=== PATIENT | female | born 1955 | race Two or more races ===

== ENCOUNTER 2016-08-05 17:09 | Emergency (ER) | payer SELFPAY ==
[2016-08-05 17:23] VITALS: BP 175/89
[2016-08-05] MEDS ORDERED: HYDR-971 PO (17:30)
[2016-08-05] MEDS ORDERED: AMOX500C PO (17:30)
--- NOTE | 2016-08-05 17:30 | PHYS DOC ---
Adult General Chief Complaint Chief Complaint: DENTAL PROBLEM [facility] HPI Patient is a 60 year old female presents emergency Department with complaint of atraumatic right lower dental pain is been ongoing for several weeks. Patient does have a dentist that she sees. She's been having serial extractions of her teeth. Last extractions approximately 30 days ago. Patient states that she has not been on antibiotics within the past 90 days. She denies any history of fevers or chills. Patient denies any history of immunodeficiency problems. She states that she will get back in to see her dentist within the next 10-14 days. She is just requesting evaluation of possible need for antibiotics as well as a prescription for pain medication to bridge the gap until she sees her dentist again. This information was translated through contracted translation service. Review of Systems Review of Systems Constitutional: Denies fever or chills [] Eyes: Denies change in visual acuity, redness, or eye pain [] HENT: Denies nasal congestion or sore throat [] Respiratory: Denies cough or shortness of breath [] Cardiovascular: No additional information not addressed in HPI [] GI: Denies abdominal pain, nausea, vomiting, bloody stools or diarrhea [] : Denies dysuria or hematuria [] Musculoskeletal: Denies back pain or joint pain [] Integument: Denies rash or skin lesions [] Neurologic: Denies headache, focal weakness or sensory changes [] Endocrine: Denies polyuria or polydipsia [] Allergies Allergies Allergies Coded Allergies Type Severity Reaction Last Updated Verified No Known Drug Allergies 08/05/16 No Physical Exam Physical Exam Constitutional: Well developed, well nourished, no acute distress, non-toxic appearance. Patient is afebrile. HENT: Normocephalic, atraumatic, bilateral external ears normal, oropharynx moist, no oral exudates, nose normal. There is no trismus. Patient is essentially edentulous with approximately 45 maintain teeth in her mouth. Patient's right mandibular cuspid is decayed into the gumline. There is no purulent drainage. There is some surrounding gingival inflammation without a fluctuant pocket suggestive of a gingival abscess. Eyes: PERRLA, EOMI, conjunctiva normal, no discharge. [] Neck: Normal range of motion, no tenderness, supple, no stridor. Cardiovascular:Heart rate regular rhythm, no murmur [] Lungs & Thorax: Bilateral breath sounds clear to auscultation [] Abdomen: Bowel sounds normal, soft, no tenderness, no masses, no pulsatile masses. [] Skin: Warm, dry, no erythema, no rash. [] Back: No tenderness, no CVA tenderness. [] Extremities: No tenderness, no cyanosis, no clubbing, ROM intact, no edema. [] Neurologic: Alert and oriented X 3, normal motor function, normal sensory function, no focal deficits noted. [] Psychologic: Affect normal, judgement normal, mood normal. [] EKG EKG [] Radiology/Procedures Radiology/Procedures [] Course & Med Decision Making Course & Med Decision Making Pertinent Labs and Imaging studies reviewed. (See chart for details) [] Dragon Disclaimer Dragon Disclaimer This electronic medical record was generated, in whole or in part, using a voice recognition dictation system. Departure Departure Impression: Primary Impression: Dental caries Disposition: HOME, SELF-CARE Condition: GOOD Patient Instructions: Dental Caries-Brief Additional Instructions: 1. Take the medications as prescribed. 2. Review the discharge instructions provided for self-care and reasons to return the emergency department. 3. Contact your dentist in the morning to schedule follow-up appointment for as soon as possible. Scripts Hydrocodone/Apap 5-325 ([place] 5-325 Tablet)1 Each Tablet1 Tab PO PRN Q6HRS PRN PAIN #15 TAB Prov:SARAH HARPER 08/05/16 Amoxicillin 500 Mg Ukxccad112 Mg PO TID #30 CAP Prov:SARAH HARPER 08/05/16 SARAH HARPER Aug 05, 2016 17:30
== END 2016-08-05 17:40 | disposition home or self-care (01) ==
LOC: ER 17:09
DX: K02.9 Dental caries, unspecified (principal)
CPT/HCPCS: 99283